=== PATIENT | female | born 1990 | race African-American/Black ===

== ENCOUNTER 2016-09-23 07:22 | Emergency (ER) | payer MEDICAID ==
[~2016-09-23] VITALS: Ht 170.2 cm; Wt 142.0 kg
[~2016-09-23 07:22] MED LIST: FLUC100T42 PO
[2016-09-23] MEDS ORDERED: ONDANSETRON HCL 4MG/2ML VIAL IV STA (08:12)
[2016-09-23] MEDS ORDERED: KETOROLAC 30MG/ML VIAL IV STA (08:12)
[2016-09-23] MEDS ORDERED: SODIUM CHLORIDE 0.9% 1,000 ML IV ONE (08:12)
[2016-09-23 09:05] LABS: PROTHROMBIN TIME 10.7 sec
[2016-09-23 09:06] LABS: BASOPHILS % 0.7 % (0.0-2.0); DIFFERENTIAL COMMENT 0; EOSINOPHILS % 0.9 % (0.0-5.0); HEMATOCRIT. 41.5 % (36.0-48.0); HEMOGLOBIN. 12.9 g/dL (12.0-16.0); LYMPHOCYTES % 32.4 % (20.0-50.0); MEAN CORPUSCULAR HEMOGLOBIN 24.4 pg (28.0-32.0); MEAN CORPUSCULAR HGB CONC 31.2 g/dL (31.0-37.0); MEAN CORPUSCULAR VOLUME 78.2 fL (81.0-99.0); MEAN PLATELET VOLUME 10.2 fl (7.4-10.4); MONOCYTES % 6.8 % (2.0-8.0); NEUTROPHILS % 59.2 % (40.0-76.0); PLATELET 238 x1000/uL (130-400); RED BLOOD CELL COUNT 5.31 mill/uL (4.2-5.4); RED CELL DISTRIBUTION WIDTH 15.5 % (11.6-14.6); WHITE BLOOD COUNT 10.3 x1000/uL (4.5-11.0)
[2016-09-23 09:08] LABS: ALBUMIN 3.5 g/dL (3.4-5.0); ANION GAP 12; CALCIUM 8.9 mg/dL (8.5-10.1); CARBON DIOXIDE 24 mEq/L (21-32); CHLORIDE 108 mEq/L (98-107); INDEX HEMOLYSI 4 (1-3); INDEX ICTERIC 1 (1-4); INDEX LIPEMIC 1 (1-3); LIPASE 135 IU/L (73-393); UREA NITROGEN BLOOD 8 mg/dL (7-21)
[2016-09-23 09:12] LABS: ALANINE AMINOTRANSFERASE 22 IU/L (13-61); eGFR > 60 mL/min (>60)
[2016-09-23 09:12] LABS: CLARITY URINE CLOUDY (CLEAR); COLOR URINE YELLOW (YELLOW); GLUCOSE URINE NEGATIVE (NEGATIVE); KETONES URINE NEGATIVE (NEGATIVE); LEUKOCYTE ESTERASE URINE TRACE (NEGATIVE); NITRITE URINE NEGATIVE (NEGATIVE); OCCULT BLOOD URINE 3+ (NEGATIVE); PH URINE 7.5 (4.5-8.0); PROTEIN URINE NEGATIVE (NEGATIVE); SPECIFIC GRAVITY URINE 1.019 (1.005-1.030); UROBILINOGEN URINE 0.2 E.U./dL (0.2-1.0)
[2016-09-23 09:38] LABS: BACTERIA URINE 4+; RBC URINE 0-2 /hpf (0-2); SQUAMOUS EPITHELIAL CELL URINE 1+ /lpf (RARE/1+); WBC URINE 0-2 /hpf (0-2)
[2016-09-23 09:39] LABS: MUCUS URINE TRACE /lpf (< = 2+)
[2016-09-23 10:10] VITALS: BP 116/82
== END 2016-09-23 10:52 | disposition home or self-care (01) ==
LOC: ER 08:01
DX: K80.20 Calculus of gallbladder without cholecystitis without obstruction (principal); C81.90 Hodgkin lymphoma, unspecified, unspecified site; K76.0 Fatty (change of) liver, not elsewhere classified
CPT/HCPCS: 36415; 76705; 80053; 81001; 81025; 83690; 85025; 85610; 96361; 96374; 96375; 99285; J1885; J2405; J7030

== ENCOUNTER 2016-11-11 09:53 | Emergency (ER) | payer MEDICAID ==
[~2016-11-11] VITALS: Ht 172.7 cm; Wt 144.0 kg
[2016-11-11] MEDS ORDERED: KETOROLAC 60MG/2ML VIAL IM ONE (10:45)
[2016-11-11] MEDS ORDERED: PREDNISONE 20MG TABLET PO ONE (10:45)
[2016-11-11 11:18] VITALS: BP 137/87
== END 2016-11-11 12:55 | disposition home or self-care (01) ==
LOC: ER 09:54
DX: J02.9 Acute pharyngitis, unspecified (principal); H92.01 Otalgia, right ear
CPT/HCPCS: 87070; 87430; 96372; 99284; J1885; J7512

== ENCOUNTER 2017-07-27 14:24 | Emergency (ER) | payer MEDICAID ==
[~2017-07-27] VITALS: Ht 172.7 cm; Wt 150.0 kg
[2017-07-27 14:36] VITALS: BP 124/85
[2017-07-27 15:57] LABS: BASOPHILS % 0.8 % (0.0-2.0); EOSINOPHILS % 0.8 % (0.0-5.0); HEMATOCRIT. 39.5 % (36.0-48.0); HEMOGLOBIN. 12.5 g/dL (12.0-16.0); MEAN CORPUSCULAR HEMOGLOBIN 25.2 pg (28.0-32.0); MEAN CORPUSCULAR VOLUME 79.6 fL (81.0-99.0); MEAN PLATELET VOLUME 10.3 fl (7.4-10.4); MONOCYTES % 8.2 % (2.0-8.0); NEUTROPHILS % 58.2 % (40.0-76.0); PLATELET 235 x1000/uL (130-400); RED BLOOD CELL COUNT 4.96 mill/uL (4.2-5.4); RED CELL DISTRIBUTION WIDTH 14.8 % (11.6-14.6)
[2017-07-27 15:59] LABS: CHLORIDE 108 mEq/L (98-107)
[2017-07-27 16:07] LABS: INR 1.1; PROTHROMBIN TIME 10.9 sec (9.4-11.6)
== END 2017-07-27 18:57 | disposition left against medical advice (07) ==
LOC: ER 16:21
DX: R10.11 Right upper quadrant pain (principal); Z98.890 Other specified postprocedural states
CPT/HCPCS: 36415; 80053; 83690; 85025; 85610; 99284

== ENCOUNTER 2023-05-09 21:12 | Emergency (ER) | payer MEDICAID ==
[~2023-05-09] VITALS: Ht 170.2 cm; Wt 147.9 kg
[2023-05-09 21:23] VITALS: BP 163/103; RESP 16; TEMP 98.5; O2SAT 100
[2023-05-09 21:25] VITALS: PULSE 98
[2023-05-09] MEDS ORDERED: KETOROLAC 60MG/2ML VIAL IM ONE (22:15)
[2023-05-09] MEDS ORDERED: DEXAMETHASONE 1MG TABLET PO ONE (22:15)
[2023-05-09] MEDS ORDERED: HYDROCODONE/ACETAMINOPHEN 7.5/325MG TABLET PO ONE (22:15)
[2023-05-09] MEDS ORDERED: DEXAMETHASONE 4MG TABLET PO NR (22:45)
[2023-05-09] MEDS ORDERED: OFLO5DRO4 RIGHT EAR (23:09)
== END 2023-05-09 23:41 | disposition home or self-care (01) ==
LOC: ER 21:12
DX: H60.91 Unspecified otitis externa, right ear (principal)
CPT/HCPCS: 96372; 99283; J8540; J1885; Z7610